=== PATIENT | male | born 1965 | race Caucasian/White ===

== ENCOUNTER 2016-07-10 10:47 | Observation (INO) | payer OTHER ==
[2016-07-10] MEDS ORDERED: ASPIRIN 81 MG (BABY) CHEWABLE TABLET PO ONE (10:53)
[2016-07-10] MEDS ORDERED: NITROGLYCERIN 0.4 MG SL TAB (BOTTLE OF 3) SL ONE (10:58)
[2016-07-10] MEDS ORDERED: MORPHINE SULFATE 4 MG/1 ML IVP ONE (10:58)
[2016-07-10] MEDS ORDERED: LORazepam 2 MG/1 ML VIAL IVP ONE (10:58)
[2016-07-10] MEDS ORDERED: ONDANSETRON 4 MG/2 ML VIAL IVP ONE (10:58)
--- NOTE | 2016-07-10 11:05 | PDOC ---
Chest Pain HPI - General Chief Complaint: Chest Pain Stated Complaint: CHEST PAIN Date Seen by Provider: 07/10/16 Time Seen by Provider: 11:00 Source: Patient Exam Limitations: POSITIVE: No limitations Treatment Prior to Arrival: REPORTS: None Nurse's Notes Reviewed & Considered: Yes - History of Present Illness Initial Comments: Patient reports into the emergency room with chest pain. Patient developed chest pain that he describes as a pressure, substernal, with no radiation. This pain began approximately 4 PM yesterday and has progressively gotten worse today. 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 He describes it as pressure and burning. He denies any headache, changes in his vision, shortness of breath, no cough, no abdominal pain, no nausea vomiting or diarrhea, no fever chills or sweats. Body Location Affected: REPORTS: Chest Timing: REPORTS: Constant Duration: <24 hours Severity: Moderate Context: REPORTS: Activity (Began during work but has progressed during rest overnight.) Quality: REPORTS: Burning, Pressure Modifying Factors: improves with: None Reported Similar Symptoms Previously: No Recently seen/treated/hospitalized: No Any Prior Injuries Related to Current Complaint?: No - Patient Home Medications Home Medications: Home Medications Esomeprazole Magnesium [Nexium] 40 mg PO DAILY 07/10/16 Ibuprofen [Advil] 400 mg PO TID PRN 07/10/16 - Patient Allergies Allergies/Adverse Reactions: Allergies Allergy/AdvReac Type Severity Reaction Status Date / Time No Known Allergies Allergy Verified 07/10/16 13:29 ROS - Limitations ROS Limitations: No Limitations Constitution: REPORTS: Denies Symptoms Cardiovascular: REPORTS: Chest Pain Respiratory: REPORTS: Denies Resp Symptoms Neurological: REPORTS: Denies Neuro Symptoms Gastrointestinal: REPORTS: Denies GI Symptoms Endocrine: REPORTS: Denies Symptoms Musculoskeletal: REPORTS: Denies MS Symptoms Genitourinary: REPORTS: Denies Symptoms Eyes: REPORTS: Denies Symptoms ENT: REPORTS: Denies Symptoms Skin: REPORTS: Denies Skin Symptoms Lympathic: REPORTS: Denies Lympathic Symptoms Immunologic: POSITIVE: Denies Symptoms Psychiatric: POSITIVE: Denies Psych Symptoms Chest Pain PE - General Appearance General Appearance: REPORTS: Alert, Cooperative, No Evidence of Trauma, Anxious , Mild Distress - HEENT HEENT: POSITIVE: Head Inspection Nml, Eyes Inspection Nml, Ears Inspection Nml, Nose Inspection Nml, PERRL, EOMI - Neck Neck: REPORTS: Normal Inspection - Respiratory Respiratory: REPORTS: No Respiratory Distress, Breath Sounds Normal, Chest Non- Tender - Cardiovascular Cardiovascular: REPORTS: Regular Rate and Rhythm, Heart Sounds Normal - Abdomen Abdomen: Soft: (All Quadrants), Normal Bowel Sounds: (All Quadrants), Denies Tenderness: (All Quadrants) - Skin Skin: REPORTS: Intact, Normal For Race, Warm, Dry, No Rash - Extremities Extremity: Non-Tender: (All Extremities), Normal ROM: (All Extremities), Normal Inspection: (All Extremities) - Neurological / Psychological Neurological: POSITIVE: Affect Apporpriate, Oriented X3, Motor Normal, Sensation Normal Chest Pain Progress - Results Reviewed by me Xrays/CTs/US Reviewed by me: Yes Discussed with Radiologist: No Lab Results Reviewed: Yes Lab Results:: Laboratory Results 07/10/16 Range/Units 11:00 WBC 8.13 (4.8-10.8) 10^3/uL RBC 5.20 (4.70-6.10) 10^6/uL Hgb 14.6 (14.0-18.0) g/dL Hct 42.5 (42.0-52.0) % MCV 81.7 (80-90) FL MCH 28.1 (27-31) PG MCHC 34.4 (33-37) g/dL RDW Std Deviation 38.9 L (39-50) fL RDW Coeff of Nicole 13.1 (11.5-14.5) % Plt Count 313 (140-350) 10*3/uL MPV 9.0 (7.4-12.2) FL Immature Gran % (Auto) 0.1 (0-5) % Neut % (Auto) 53.9 (50-80) % Lymph % (Auto) 35.1 (10-50) % [place] % (Auto) 8.1 (5-15) % Eos % (Auto) 2.1 (0-8) % Baso % (Auto) 0.7 (0-1) % Immature Gran # (Auto) 0.01 10*3/UL Neut # (Auto) 4.38 10*3/UL Lymph # (Auto) 2.85 10*3/uL [place] # (Auto) 0.66 (0.3-0.8) 10*3/UL Eos # (Auto) 0.17 10*3/UL Baso # (Auto) 0.06 10*3/UL WBC Morphology Comment Normal morphology (NORM) Plt Morphology Comment Normal morphology (NORM) RBC Morph Comment Normal morphology (NORM) D-Dimer 0.40 (0.00-0.59) mg/L Sodium 134 L (135-145) meq/L Potassium 4.5 (3.8-5.2) meq/L Chloride 101 (98-112) meq/L Carbon Dioxide 20 L (23-33) meq/L Anion Gap 13 (5-20) BUN 16 (7-22) mg/dL Creatinine 0.9 (0.70-1.50) mg/dL Estimated GFR > 60 (>60 ml/min/1.73m(2)) BUN/Creatinine Ratio 17.77 (6-20) Glucose 102 (78-110) mg/dL Calculated Osmolality 278.0 (267-292) mOsm/kg Calcium 9.3 (8.7-10.7) mg/dL Magnesium 1.8 (1.6-2.4) mg/dL Total Bilirubin 0.9 (0.3-1.2) mg/dL AST 36 (21-57) IU/L ALT 31 (21-72) IU/L Alkaline Phosphatase 55 (38-126) IU/L Troponin I < 0.012 (< 0.040) ng/mL C-Reactive Protein < 0.5 (0.0-0.9) mg/dL Total Protein 7.9 (6.1-8.0) g/dL Albumin 4.4 (3.5-4.8) g/dL Globulin 3.5 (2.50-4.10) g/dL Albumin/Globulin Ratio 1.20 L (1.3-2.0) mg/g TSH 1.12 (0.2700-4.2000) uIU/mL EKG Interpreted/Reviewed By Me:: Yes (NSR) EKG Interpretation:: POSITIVE: Normal Sinus Rhythm, Normal Rate, Normal QRS, Normal ST/T - Patient's Progress Pain Medication Addressed: POSITIVE: Yes Re-Examine Time: 13:31 Status: POSITIVE: Improved MDM / ED Course: Patient was evaluated, an IV started, blood drawn and sent to the lab for studies, EKG and chest x-rays obtained. During the attempt to start his IV in his left arm he experienced a syncopal episode with sweating, faintness, and shortness of breath. This rapidly improved. He received a GI cocktail which did not improve his pain. He then received sublingual nitroglycerin which again caused a precipitous drop in his blood pressure into the 90s systolic. The sublingual nitroglycerin did improve his chest pressure from a 5/10 down to a 2/10. Findings: EKG interpreted by me shows a sinus rhythm with normal QRS, normal ST- T segments. Chest x-ray shows no acute cardiopulmonary decompensation per my interpretation. CBC is unremarkable, comprehensive metabolic panel is unremarkable, magnesium is normal, troponin is normal, d-dimer is normal, TSH is normal. Assessment: Chest pain, relieved with sublingual nitroglycerin. Patient is being admitted for rule out myocardial infarction. Plan: Admission, serial cardiac enzymes. Quality Measure Initiative: CP/AMI: POSITIVE: EKG, ASA Quality Measure Initiative: CAP: POSITIVE: CXR or CT - Consult Consult (If Yes, Name of Consulting MD & Time Called): Yes (DR. Sultana [id number]) Consulting MD will see pt:: POSITIVE: [facility] [place] Admit Counseled: POSITIVE: Patient, RE: Lab Results, RE: Radiology Results, RE: DX Patient Care Time - Estimated PCT Patient Care Time (In Minutes): 45 Vital Signs - Recent Vital Signs Vital Signs: Vital Signs (Last 8 hours) Temp Pulse Resp BP Pulse Ox 07/10/16 12:56 67 142/98 98 07/10/16 12:36 76 16 135/93 94 07/10/16 12:01 88 07/10/16 11:19 68 16 112/80 98 07/10/16 11:09 73 90/73 89 07/10/16 11:00 66 59/46 90 07/10/16 10:48 98.1 F 88 16 163/114 94 - VS Reviewed Vital Signs Reviewed: Yes Discharge Clinical Impression: Chest pain Discharge Disposition: Admit to Inpatient Condition: Stable Patient Instructions Given at Discharge: Chest Pain (ED) Follow Up With: NONE,NONE [Primary Care Provider] - Date Decision to Admit to Inpatient: 07/10/16 Time Decision to Admit to Inpatient: 13:32
[2016-07-10 11:10] LABS: BASOPHILS # (AUTO) 0.06 10*3/UL; BASOPHILS % (AUTO) 0.7 % (0-1); EOSINOPHILS # (AUTO) 0.17 10*3/UL; EOSINOPHILS % (AUTO) 2.1 % (0-8); HEMATOCRIT 42.5 % (42.0-52.0); HEMOGLOBIN 14.6 g/dL (14.0-18.0); LYMPHOCYTES # (AUTO) 2.85 10*3/uL; MEAN CORPUSCULAR HEMOGLOBIN 28.1 PG (27-31); MEAN CORPUSCULAR HGB CONC 34.4 g/dL (33-37); MEAN CORPUSCULAR VOLUME 81.7 FL (80-90); MONOCYTES # (AUTO) 0.66 10*3/UL (0.3-0.8); MONOCYTES % (AUTO) 8.1 % (5-15); NEUTROPHILS # (AUTO) 4.38 10*3/UL; NEUTROPHILS % (AUTO) 53.9 % (50-80)
[2016-07-10] MEDS ORDERED: Sodium Chloride 0.9% 1,000 ML PRIMARY IV ONE (11:10)
[2016-07-10 11:11] LABS: PLATELET MORPHOLOGY COMMENT NORMAL MORPHOLOGY (NORM); RBC MORPHOLOGY COMMENT NORMAL MORPHOLOGY (NORM); WBC MORPHOLOGY COMMENT NORMAL MORPHOLOGY (NORM)
[2016-07-10 11:24] LABS: BLOOD UREA NITROGEN 16 mg/dL (7-22); BUN/CREATININE RATIO 17.77 (6-20); CALCIUM 9.3 mg/dL (8.7-10.7); EST GLOMERULAR FILTRATION > 60 (>60 ml/min/1.73m(2)); MAGNESIUM 1.8 mg/dL (1.6-2.4); SERUM ALBUMIN 4.4 g/dL (3.5-4.8)
[2016-07-10] MEDS ORDERED: Belladon/PHENobarbital Elixir 10 ML, Lidocaine Viscous Liquid 2% 15 ML, Mag Hyd/Al Hyd/... PO ONE ×3 (11:38)
[2016-07-10] MEDS ORDERED: NORMAL SALINE 10 ML SYRINGE FLUSH IVP PRN (14:07)
[2016-07-10] MEDS ORDERED: LIDOCAINE W/ SODIUM BICARB 0.5 ML SYR SUBD PRN (14:07)
[2016-07-10] MEDS ORDERED: ONDANSETRON 4 MG/2 ML VIAL IVP PRN (14:07)
[2016-07-10] MEDS ORDERED: NITROGLYCERIN 0.4 MG SL TAB (BOTTLE OF 3) SL PRN (14:07)
--- NOTE | 2016-07-10 15:48 | PDOC ---
History and Physical - History of Present Illness Date and Time of Service: 07/10/2016, 1542 Chief Complaint: Chest pain History of Present Illness: This very pleasant 50-year-old male with reflux disease relapse on Nexium therapy for that for several years now who presents with complaints of chest pain that really started yesterday. He states that after he then her, he had some immediate chest pain that felt pressure-like and radiated into his neck. The pains that seemed to subside, but came back this morning was significantly worse. He states he might of had some shortness breath that wasn't too sure, no nausea, vomiting, or diaphoresis. He does not take anything else when necessary for chest pain such as Tums or H2 blockers, and he is scheduled for repeat EGD in August of this year. He states the monitor frequently with EGD for this. In the emergency room, the patient was given nitroglycerin and that helped his pain, but his blood pressures did drop with that. He states to me that every now and then he'll have that type of chest pressure although not radiation into the neck and not quite as severe, and it just tends to go away on its own. He does chew tobacco, does not have hypertension, does not have diabetes, and does not still status. He does have a family history of heart disease in his father had a bypass in his 60s. He does have some knee arthritis , but states that he feels like he can do a treadmill. Past Medical History Medical History: 1. GERD. 2. Chews tobacco Surgical History: None Pertinent Family History: Father had bypass and heart disease Past Social History: , has 2 children described as healthy. Lives in [place], [place]. 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 Does not drink alcohol. Does not do drugs. Tobacco Use: Never Smoker Do you dip or chew tobacco: Yes Substance Use Type: None Alcohol Use: None Medication / Allergies Home Medications: Home Medications Medication Instructions Recorded Confirmed Type Esomeprazole Magnesium [Nexium] 40 mg PO DAILY 07/10/16 07/10/16 History Ibuprofen [Advil] 400 mg PO TID PRN 07/10/16 07/10/16 History Allergies/Adverse Reactions: Allergies Allergy/AdvReac Type Severity Reaction Status Date / Time No Known Allergies Allergy Verified 07/10/16 13:29 Review of Systems - Review of Systems All Systems: Reviewed & No Additional Complaints Except as Stated (I did a 12 point review systems and it was negative other than that discussed in history present illness.) Exam - Vitals Vital Signs: Vital Signs Temperature 97 F Temperature Source Temporal Artery Scan Pulse Rate [Telemetry] 67 Pulse Rate 82 Respiratory Rate 18 Blood Pressure [Left Arm] 136/85 Blood Pressure 117/88 Pulse Ox 92 Oxygen Delivery Method Room Air Height 6 ft Weight 222 lb - General General Appearance: POSITIVE: No Acute Distress, Cooperative - Head Head Exam: POSITIVE: Normal Inspection, Normocephalic, Atraumatic - Eye Eye Exam: POSITIVE: Normal Appearance, No Scleral Icterus - ENT ENT Exam: POSITIVE: Mucous Membranes Moist - Neck Neck Exam: POSITIVE: Normal Inspection, No Tenderness, No Thyromegaly - Respiratory Respiratory Exam: POSITIVE: Clear to Auscultation - Bilaterally, Breathing Non Labored, Normal to Percussion and Palpation - Cardiovascular Cardiovascular Exam: POSITIVE: RRR, No Murmur, No Clicks, No Gallops, No Rubs, PMI Non-Displaced, No JVD Additional Cardiovascular Details: Chest pain is not reproduced with palpation. - GI/Abdominal GI/Abdominal Exam: POSITIVE: Normal Bowel Sounds, Non Tender, Non Distended, Soft - Rectal Rectal Exam: POSITIVE: Deferred - External Exam: POSITIVE: Deferred Exam: POSITIVE: Deferred - Extremities Extremities Exam: POSITIVE: No Clubbing Present, No Edema Present, No Cyanosis Present - Back Back Exam: POSITIVE: Normal Inspection, No CVA Tenderness - Neurological Neurological Exam: POSITIVE: Alert, Oriented x 3, No Facial Droop, Speech Intact / Clear, Moves All Extremities Equally - Psychiatric Psychiatric Exam: POSITIVE: Normal Affect, Normal Mood Results - Labs CBC and BMP: 07/10/16 11:00 07/10/16 11:00 Labs - Last 24 Hours: Laboratory Results 07/10/16 Range/Units 11:00 WBC 8.13 (4.8-10.8) 10^3/uL RBC 5.20 (4.70-6.10) 10^6/uL Hgb 14.6 (14.0-18.0) g/dL Hct 42.5 (42.0-52.0) % MCV 81.7 (80-90) FL MCH 28.1 (27-31) PG MCHC 34.4 (33-37) g/dL RDW Std Deviation 38.9 L (39-50) fL RDW Coeff of Nicole 13.1 (11.5-14.5) % Plt Count 313 (140-350) 10*3/uL MPV 9.0 (7.4-12.2) FL Immature Gran % (Auto) 0.1 (0-5) % Neut % (Auto) 53.9 (50-80) % Lymph % (Auto) 35.1 (10-50) % [place] % (Auto) 8.1 (5-15) % Eos % (Auto) 2.1 (0-8) % Baso % (Auto) 0.7 (0-1) % Immature Gran # (Auto) 0.01 10*3/UL Neut # (Auto) 4.38 10*3/UL Lymph # (Auto) 2.85 10*3/uL [place] # (Auto) 0.66 (0.3-0.8) 10*3/UL Eos # (Auto) 0.17 10*3/UL Baso # (Auto) 0.06 10*3/UL WBC Morphology Comment Normal morphology (NORM) Plt Morphology Comment Normal morphology (NORM) RBC Morph Comment Normal morphology (NORM) D-Dimer 0.40 (0.00-0.59) mg/L Sodium 134 L (135-145) meq/L Potassium 4.5 (3.8-5.2) meq/L Chloride 101 (98-112) meq/L Carbon Dioxide 20 L (23-33) meq/L Anion Gap 13 (5-20) BUN 16 (7-22) mg/dL Creatinine 0.9 (0.70-1.50) mg/dL Estimated GFR > 60 (>60 ml/min/1.73m(2)) BUN/Creatinine Ratio 17.77 (6-20) Glucose 102 (78-110) mg/dL Calculated Osmolality 278.0 (267-292) mOsm/kg Calcium 9.3 (8.7-10.7) mg/dL Magnesium 1.8 (1.6-2.4) mg/dL Total Bilirubin 0.9 (0.3-1.2) mg/dL AST 36 (21-57) IU/L ALT 31 (21-72) IU/L Alkaline Phosphatase 55 (38-126) IU/L Troponin I < 0.012 (< 0.040) ng/mL C-Reactive Protein < 0.5 (0.0-0.9) mg/dL Total Protein 7.9 (6.1-8.0) g/dL Albumin 4.4 (3.5-4.8) g/dL Globulin 3.5 (2.50-4.10) g/dL Albumin/Globulin Ratio 1.20 L (1.3-2.0) mg/g TSH 1.12 (0.2700-4.2000) uIU/mL - EKG Data EKG Interpretation: Other (I am ordering an EKG.) - Imaging Status: Image Reviewed by Me (Chest x-ray appears negative.) Assessment and Plan - Patient Problems (1) Chest pain Current Visit: Yes Status: Acute Qualifiers: Chest pain type: precordial pain Qualified Description: Precordial pain Qualifier Code(s): (R07.2) Precordial pain (2) GERD (gastroesophageal reflux disease) Current Visit: Yes Status: Acute Qualifiers: Esophagitis presence: esophagitis presence not specified Qualified Description: Gastroesophageal reflux disease, esophagitis presence not specified Qualifier Code(s): (K21.9) Gastro-esophageal reflux disease without esophagitis (3) Chewing tobacco nicotine dependence Current Visit: Yes Status: Acute Qualifiers: Substance use status: uncomplicated Qualified Description: Chewing tobacco nicotine dependence without complication Qualifier Code(s): ( F17.220) Nicotine dependence, chewing tobacco, uncomplicated - Assessment / Plan Additional Assessment/Plan Details: Plan: 1. Do serial enzymes and EKG if necessary 2. Aspirin, but does not appear to be unstable angina, so hold off on Lovenox. Would like to hold beta martha to get stress test on 3. We'll have the patient do a stress test [nuclear medicine treadmill test] 4. Proton pump inhibitorhome Nexium at possible 5. Nitroglycerin when necessary for chest pain 6. Morphine if necessary via IV 7. Oxygen if necessary 8. If testing indicates further need for evaluation, discussion with cardiology. If testing is negative for myocardial infarction and no further indication for coronary artery disease, consider outpatient workup for GI source , pulmonary source, or other 9. Noting that the patient has a scheduled EGD in August, but it may be worthwhile to do pH monitoring and determine whether the patient could be a candidate for Kelly fundoplication for his bad acid reflux. In the meantime, consider Tums or H2 blockers to help. Plan above discussed with patient and his and they agreed.
--- NOTE | 2016-07-10 15:54 | EKG ---
[address] [address] Measurements Intervals [place] Rate: 84 P: 37 DC: 179 QRS: -5 QRSD: 105 T: 12 QT: 365 QTc: 407 Interpretive Statements SINUS RHYTHM No prior study available for comparison and no acute ST-T changes to suggest acute injury. Electronically Signed On 07-11-16 08:09:15 MDT by Sin Tirado MD [email or web address]
[2016-07-11 04:43] LABS: AMPHETAMINE SCREEN NEGATIVE (NEG); CANNABINOID SCREEN,URINE NEGATIVE (NEG); COCAINE SCREEN NEGATIVE (NEG); METHADONE URINE SCREEN NEGATIVE (NEG); METHAMPHETAMINES SCREEN,URINE NEGATIVE (NEG); OPIATE SCREEN,URINE NEGATIVE (NEG); URINE SAMPLE TYPE CLEAN CATCH URINE; URINE SPECIFIC GRAVITY - MAN 1.015
[2016-07-11 06:44] LABS: CHOL/HDL RATIO 4.19 RATIO (0-4.0); LDL CHOLESTEROL,CALCULATED 101.4 mg/dL
[2016-07-11] MEDS: Esomeprazole DR 20mg Capsule PO SCH (06:49)
--- NOTE | 2016-07-11 09:22 | STRESSTEST ---
[facility] [place] Interpretive Statements This is a 50 YO male who presented with chest pain. Had + family history, no DMII, no HTN, no cholesterol problems, + chewing tobacco. Ruled out for myocardial infarction. Resting EKG NSR. Exercised to 7:27 on Trav protocol, sestimebi stress test. Did have hypertensive response and SVT which all recovered in rest. Plan: stress images today, resting images tomorrow. [email or web address]
--- NOTE | 2016-07-11 09:35 | DI ---
AP CHEST X-RAY, 07/10/2016 10:58 AM : Clinical History: Chest pain Previous Exam: None at this facility. There is no acute soft tissue or bony abnormality. Heart size is normal. Lungs are clear. Mediastinal structures are normal. There are no pulmonary nodules. Reading: Normal chest x-ray.
[2016-07-11] MEDS: ASPIRIN EC 81 MG TABLET PO SCH (10:00)
[2016-07-11] MEDS ORDERED: CALCIUM CARBONATE 500 MG (TUMS) CHEWABLE TABLET PO PRN (11:29)
--- NOTE | 2016-07-11 11:29 | PDOC(PROG) ---
Date and Time of Service: 07/11/2016, 1129 Interval History: Chest pain is essentially unchanged, no shortness of breath and no nausea or vomiting. We did do a stress test today, and the results are pending as it is a 2 day sestamibi treadmill stress test. The stress portion done today, with the rest images to be done tomorrow. Objective : Data - Labs CBC and BMP: 07/10/16 11:00 07/10/16 11:00 Labs - Last 24 Hours: Laboratory Results 07/10/16 07/10/16 07/11/16 Range/Units 15:50 22:19 04:00 Troponin I < 0.012 < 0.012 (< 0.040) ng/mL Triglycerides (44-200) mg/dL Cholesterol (120-200) mg/dL LDL Cholesterol, Calc mg/dL VLDL Cholesterol (0-40) mg/dL HDL Cholesterol (40-150) mg/dL Cholesterol/HDL Ratio (0-4.0) RATIO Ur Collection Type Clean catch urine U Specif Grav (Refrac) 1.015 Urine Opiates Screen Negative (NEG) Ur Buprenorphine Negative (NEG) Ur Oxycodone Screen Negative (NEG) Urine Methadone Screen Negative (NEG) Ur Propoxyphene Screen Negative (NEG) Barbiturate Screen Positive H (NEG) U Tricyclic Antidepress Negative (NEG) Phencyclidine Screen Negative (NEG) Amphetamines Screen Negative (NEG) U Methamphetamines Scrn Negative (NEG) Benzodiazepines Screen Negative (NEG) Cocaine Screen Negative (NEG) U Marijuana (THC) Screen Negative (NEG) 07/11/16 Range/Units 06:08 Troponin I < 0.012 (< 0.040) ng/mL Triglycerides 163 (44-200) mg/dL Cholesterol 176 (120-200) mg/dL LDL Cholesterol, Calc 101.400 mg/dL VLDL Cholesterol 32 (0-40) mg/dL HDL Cholesterol 42 (40-150) mg/dL Cholesterol/HDL Ratio 4.19 H (0-4.0) RATIO Ur Collection Type U Specif Grav (Refrac) Urine Opiates Screen (NEG) Ur Buprenorphine (NEG) Ur Oxycodone Screen (NEG) Urine Methadone Screen (NEG) Ur Propoxyphene Screen (NEG) Barbiturate Screen (NEG) U Tricyclic Antidepress (NEG) Phencyclidine Screen (NEG) Amphetamines Screen (NEG) U Methamphetamines Scrn (NEG) Benzodiazepines Screen (NEG) Cocaine Screen (NEG) U Marijuana (THC) Screen (NEG) Objective : Exam - General General Appearance: No Acute Distress, Cooperative Additional General Exam Details: Vital Signs - Last Taken Temperature 97.7 F 07/11/16 10:50 Pulse Rate 84 07/11/16 10:50 Respiratory Rate 18 07/11/16 10:50 Blood Pressure 143/87 07/11/16 10:50 Pulse Ox 92 07/11/16 10:50 - Eye Eye Exam: No Scleral Icterus - Respiratory Respiratory Exam: Clear to Auscultation - Bilaterally, Breathing Non Labored - Cardiovascular Cardiovascular Exam: RRR, No Murmur, No Clicks, No Gallops, No Rubs, No JVD - GI/Abdominal GI/Abdominal Exam: Normal Bowel Sounds, Non Tender, Non Distended, Soft - Extremities Extremities Exam: No Clubbing Present, No Edema Present, No Cyanosis Present - Neurological Neurological Exam: Alert, Oriented x 3, Normal Gait, No Facial Droop, Speech Intact / Clear, Moves All Extremities Equally Assessment and Plan - Patient Problems (1) Chest pain Current Visit: Yes Status: Acute Qualifiers: Chest pain type: precordial pain Qualified Description: Precordial pain Qualifier Code(s): (R07.2) Precordial pain (2) GERD (gastroesophageal reflux disease) Current Visit: Yes Status: Acute Qualifiers: Esophagitis presence: esophagitis presence not specified Qualified Description: Gastroesophageal reflux disease, esophagitis presence not specified Qualifier Code(s): (K21.9) Gastro-esophageal reflux disease without esophagitis (3) Chewing tobacco nicotine dependence Current Visit: Yes Status: Acute Qualifiers: Substance use status: uncomplicated Qualified Description: Chewing tobacco nicotine dependence without complication Qualifier Code(s): ( F17.220) Nicotine dependence, chewing tobacco, uncomplicated - Assessment / Plan Additional Assessment/Plan Details: Still suspicious that this chest pain is likely related to GERD and esophageal spasm, but we will await complete results of stress test before making that determination. Read on the treadmill portion of the stress test will be done later today, again with images to be done today for stress images and rest images tomorrow. Cholesterol panel looks well controlled and I do not think the patient needs a cholesterol medication at this point. Continue telemetry monitoring. Add when necessary medications for heartburn.
--- NOTE | 2016-07-11 18:33 | PROCEDURE1 ---
Procedure - - Date and Time of Service: 06/13/2016, 1823 Procedure Note: Procedure Performed: Exercise Stress Test, sestimibi enhanced nuclear medicine treadmill stress test Subjective: patient age, 50 Chest pain Trav protocol, nuclear medicine treadmill stress test Baseline Information: HR 64, BP 136/96, EKG findings at rest, normal sinus rhythm Peak Exercise Data: maximum HR is 169, 100% of target maximum heart rate maximum BP, 192/82 METs, 8.6 time in Stage made it into stage III, 30 seconds reason for stopping, test complete There were some abnormal signal, and a wandering baseline through big portion of this test, but at the end of exercise with immediate cessation of exercise, the patient was in sinus tachycardia versus SVT. No ST depression was noted. No ST elevation noted. When accounting for abnormal signal and noise, there were no abnormalities noted in exercise or rest HR at first minute of recovery, 136 Assessment: For the treadmill portion of the stress test, this appears to be a negative maximal stress test. There was a lot of noise which makes the test difficult to interpret in terms of any ST depressions or segment changes. Hypertensive response to exercise symptoms included fatigue at the end of the test, mild shortness breath, O2 sat found to be 88% with exercise which was above 91% on room air at rest arrhythmias, none functional aerobic capacity in METs, 8.6 Exercise Prescription and Plan: Given the treadmill portion of the stress test, the patient should be able to do aerobic exercise 30 minutes per day 5-7 times per week. Symptom dependent, Quit chewing tobacco, management of blood pressure if it maintains elevation and treat. I will have the patient monitor his blood pressures and lemon picker a blood pressure machine to monitor on a frequent basis to determine if treatment is necessary. Weight loss and tobacco cessation. Overall, plan will be to review stress and rest images tomorrow and have radiology interpret images.
[2016-07-12] MEDS: Esomeprazole DR 20mg Capsule PO SCH (07:19)
[2016-07-12] MEDS: ASPIRIN EC 81 MG TABLET PO SCH (10:46)
--- NOTE | 2016-07-12 12:09 | DI ---
2 DAY LEXISCAN STRESS & REST MYOCARDIAL PERFUSION SCANS, 07/11/2016 7:00 AM : Clinical History: Chest pain. Previous Exam: None at this facility. The patient was stressed by Dr. Sergio Loco The standard Lexiscan protocol was used. Please see the Doctor's report. At the designated time, 36.2 mCi of 99Tc-sestimibi was injected IV. Stress gated tomograms were acquired within one hour of the i njection. For the resting scans, 34.9 mCi was injected IV and resting gated tomograms were acquired in similar fashion. Stress scans were performed on July 11, 2016; the resting scans were performed on July 12, 2016. Quantitative and qualitative analyses were performed. Quantitative analysis was performed with the [place] [facility] - [facility] [id number] protocols. Very low dose limited CT scans of the chest are o btained through the level of the heart for attenuation correction of the gated stress and rest cardia c SPECT data. Non-attenuated and attenuated scans were processed for review, and the attenuated scans were used for final interpretation of this study. Review of the raw data images and quality assurance technician files indicate that these series of examinations ar e of good quality. Stress and rest left ventricular chamber sizes are normal. Stress and rest LVEF ar e 62 % and 67 %, respectively. There is no evidence of ischemia. There is normal wall motion. Transient ischemic dilatation ratio is 1.02, with a normal range up to 1.22 for patients str essed with the Trav protocol and up to 1.33 for patients stressed with the Lexiscan protocol. The very low dose CT scans through the level of the heart show no coronary artery calcifications. The re is no adenopathy or evidence of lung nodules. Readin. No evidence of ischemia. 2. Normal wall motion and normal ejection fraction.
[2016-07-12 12:31] VITALS: RESP 18; TEMP 97.2
--- NOTE | 2016-07-12 12:55 | DCSUMMARY ---
Hospitalization Summary Admit Date: 07/10/16 Discharge Date: 07/12/16 Primary Diagnosis:: chest pain, secondary to GERD Hospital Course: This very pleasant 50-year-old male that came in with substernal chest pain with a somewhat atypical story. He was given nitroglycerin which relieved his pain and his blood pressure dropped. His hip for further evaluation and management. He ruled out for myocardial infarction, his cholesterol panel is fine, and his pain significantly improved during the hospital stay. A stress test was done ([employer] Trav protocol stress test). The patient has no evidence of coronary artery disease based on the exercise component or scanning component of the stress test. His functional capacity is good enough to recommend aerobic exercise. One thing we did notices her blood pressures are occasionally elevated and at other times are normal. I think the patient has elevated blood pressure without the diagnosis of hypertension and it would be best to monitor him to determine whether he would benefit from antihypertensive medications. In terms of his reflux disease, I've suggested Tums and Zantac as when necessary medications in addition to Nexium, dietary changes and decrease or quit tobacco use if possible to help. Kelly fundoplication also may be indicated as patient is having breakthrough reflux. He has an EGD and colonoscopy scheduled with his providers back in [place] in August and I think that would be fine to wait until August to proceed with the studies at this time. There were no "red flag" symptoms outside of reflux that does not always respond to Nexium. He had normal blood counts. No evidence of anemia. No complaints of blood in the stool. No weight loss. Today, no completes of chest pain, shortness breath, nausea or vomiting. Patient is ready to go home. Assessment and Plan: 1. As per discharge assessments noted 2. Disposition: Patient is discharged home. 3. Condition on discharge, stable and improved. 4. Diet: regular diet 5. Activities: resume normal activities, okay to return to work 6. Follow-Up: 1. Primary care provider upon return to [place] 2. 7. Medications at the Time of Discharge: Home Medications Medication Instructions Recorded Confirmed Type Esomeprazole Magnesium [Nexium] 40 mg PO DAILY 07/10/16 07/10/16 History Ibuprofen [Advil] 400 mg PO TID PRN 07/10/16 07/10/16 History 8. Time, care, counseling and coordination of care for this discharge is less than 30 minutes. Exam - Vitals Vital Signs: Vital Signs Vital Signs - Last Taken Temperature 97.2 F 07/12/16 12:30 Pulse Rate 78 07/12/16 12:30 Respiratory Rate 18 07/12/16 12:30 Blood Pressure 154/98 07/12/16 12:30 Pulse Ox 93 07/12/16 12:30 - General General Appearance: POSITIVE: No Acute Distress, Cooperative - Head Head Exam: POSITIVE: Atraumatic - Eye Eye Exam: POSITIVE: No Scleral Icterus - Respiratory Respiratory Exam: POSITIVE: Clear to Auscultation - Bilaterally, Breathing Non Labored - Cardiovascular Cardiovascular Exam: POSITIVE: RRR, No Murmur, No Clicks, No Gallops, No Rubs, No JVD - GI/Abdominal GI/Abdominal Exam: POSITIVE: Normal Bowel Sounds, Non Tender, Non Distended, Soft - Extremities Extremities Exam: POSITIVE: No Clubbing Present, No Edema Present, No Cyanosis Present - Neurological Neurological Exam: POSITIVE: Alert, Oriented x 3, No Facial Droop, Speech Intact / Clear, Moves All Extremities Equally - Psychiatric Psychiatric Exam: POSITIVE: Normal Affect, Normal Mood Data Perinent Studies: Laboratory Results 07/10/16 07/10/16 07/10/16 Range/Units 11:00 15:50 22:19 WBC 8.13 (4.8-10.8) 10^3/uL RBC 5.20 (4.70-6.10) 10^6/uL Hgb 14.6 (14.0-18.0) g/dL Hct 42.5 (42.0-52.0) % MCV 81.7 (80-90) FL MCH 28.1 (27-31) PG MCHC 34.4 (33-37) g/dL RDW Std Deviation 38.9 L (39-50) fL RDW Coeff of Nicole 13.1 (11.5-14.5) % Plt Count 313 (140-350) 10*3/uL MPV 9.0 (7.4-12.2) FL Immature Gran % (Auto) 0.1 (0-5) % Neut % (Auto) 53.9 (50-80) % Lymph % (Auto) 35.1 (10-50) % [place] % (Auto) 8.1 (5-15) % Eos % (Auto) 2.1 (0-8) % Baso % (Auto) 0.7 (0-1) % Immature Gran # (Auto) 0.01 10*3/UL Neut # (Auto) 4.38 10*3/UL Lymph # (Auto) 2.85 10*3/uL [place] # (Auto) 0.66 (0.3-0.8) 10*3/UL Eos # (Auto) 0.17 10*3/UL Baso # (Auto) 0.06 10*3/UL WBC Morphology Comment Normal morphology (NORM) Plt Morphology Comment Normal morphology (NORM) RBC Morph Comment Normal morphology (NORM) D-Dimer 0.40 (0.00-0.59) mg/L Sodium 134 L (135-145) meq/L Potassium 4.5 (3.8-5.2) meq/L Chloride 101 (98-112) meq/L Carbon Dioxide 20 L (23-33) meq/L Anion Gap 13 (5-20) BUN 16 (7-22) mg/dL Creatinine 0.9 (0.70-1.50) mg/dL Estimated GFR > 60 (>60 ml/min/1.73m(2)) BUN/Creatinine Ratio 17.77 (6-20) Glucose 102 (78-110) mg/dL Calculated Osmolality 278.0 (267-292) mOsm/kg Calcium 9.3 (8.7-10.7) mg/dL Magnesium 1.8 (1.6-2.4) mg/dL Total Bilirubin 0.9 (0.3-1.2) mg/dL AST 36 (21-57) IU/L ALT 31 (21-72) IU/L Alkaline Phosphatase 55 (38-126) IU/L Troponin I < 0.012 < 0.012 < 0.012 (< 0.040) ng/mL C-Reactive Protein < 0.5 (0.0-0.9) mg/dL Total Protein 7.9 (6.1-8.0) g/dL Albumin 4.4 (3.5-4.8) g/dL Globulin 3.5 (2.50-4.10) g/dL Albumin/Globulin Ratio 1.20 L (1.3-2.0) mg/g Triglycerides (44-200) mg/dL Cholesterol (120-200) mg/dL LDL Cholesterol, Calc mg/dL VLDL Cholesterol (0-40) mg/dL HDL Cholesterol (40-150) mg/dL Cholesterol/HDL Ratio (0-4.0) RATIO TSH 1.12 (0.2700-4.2000) uIU/mL Ur Collection Type U Specif Grav (Refrac) Urine Opiates Screen (NEG) Ur Buprenorphine (NEG) Ur Oxycodone Screen (NEG) Urine Methadone Screen (NEG) Ur Propoxyphene Screen (NEG) Barbiturate Screen (NEG) U Tricyclic Antidepress (NEG) Phencyclidine Screen (NEG) Amphetamines Screen (NEG) U Methamphetamines Scrn (NEG) Benzodiazepines Screen (NEG) Cocaine Screen (NEG) U Marijuana (THC) Screen (NEG) 07/11/16 07/11/16 Range/Units 04:00 06:08 WBC (4.8-10.8) 10^3/uL RBC (4.70-6.10) 10^6/uL Hgb (14.0-18.0) g/dL Hct (42.0-52.0) % MCV (80-90) FL MCH (27-31) PG MCHC (33-37) g/dL RDW Std Deviation (39-50) fL RDW Coeff of Nicole (11.5-14.5) % Plt Count (140-350) 10*3/uL MPV (7.4-12.2) FL Immature Gran % (Auto) (0-5) % Neut % (Auto) (50-80) % Lymph % (Auto) (10-50) % [place] % (Auto) (5-15) % Eos % (Auto) (0-8) % Baso % (Auto) (0-1) % Immature Gran # (Auto) 10*3/UL Neut # (Auto) 10*3/UL Lymph # (Auto) 10*3/uL [place] # (Auto) (0.3-0.8) 10*3/UL Eos # (Auto) 10*3/UL Baso # (Auto) 10*3/UL WBC Morphology Comment (NORM) Plt Morphology Comment (NORM) RBC Morph Comment (NORM) D-Dimer (0.00-0.59) mg/L Sodium (135-145) meq/L Potassium (3.8-5.2) meq/L Chloride (98-112) meq/L Carbon Dioxide (23-33) meq/L Anion Gap (5-20) BUN (7-22) mg/dL Creatinine (0.70-1.50) mg/dL Estimated GFR (>60 ml/min/1.73m(2)) BUN/Creatinine Ratio (6-20) Glucose (78-110) mg/dL Calculated Osmolality (267-292) mOsm/kg Calcium (8.7-10.7) mg/dL Magnesium (1.6-2.4) mg/dL Total Bilirubin (0.3-1.2) mg/dL AST (21-57) IU/L ALT (21-72) IU/L Alkaline Phosphatase (38-126) IU/L Troponin I < 0.012 (< 0.040) ng/mL C-Reactive Protein (0.0-0.9) mg/dL Total Protein (6.1-8.0) g/dL Albumin (3.5-4.8) g/dL Globulin (2.50-4.10) g/dL Albumin/Globulin Ratio (1.3-2.0) mg/g Triglycerides 163 (44-200) mg/dL Cholesterol 176 (120-200) mg/dL LDL Cholesterol, Calc 101.400 mg/dL VLDL Cholesterol 32 (0-40) mg/dL HDL Cholesterol 42 (40-150) mg/dL Cholesterol/HDL Ratio 4.19 H (0-4.0) RATIO TSH (0.2700-4.2000) uIU/mL Ur Collection Type Clean catch urine U Specif Grav (Refrac) 1.015 Urine Opiates Screen Negative (NEG) Ur Buprenorphine Negative (NEG) Ur Oxycodone Screen Negative (NEG) Urine Methadone Screen Negative (NEG) Ur Propoxyphene Screen Negative (NEG) Barbiturate Screen Positive H (NEG) U Tricyclic Antidepress Negative (NEG) Phencyclidine Screen Negative (NEG) Amphetamines Screen Negative (NEG) U Methamphetamines Scrn Negative (NEG) Benzodiazepines Screen Negative (NEG) Cocaine Screen Negative (NEG) U Marijuana (THC) Screen Negative (NEG) I think the positive barbiturate screen is a false positive. Patient Problems - Patient Problem List (1) GERD (gastroesophageal reflux disease) Current Visit: Yes Status: Acute Comment: Complicated by esophageal spasm Qualifiers: Esophagitis presence: esophagitis presence not specified Qualified Description: Gastroesophageal reflux disease, esophagitis presence not specified Qualifier Code(s): (K21.9) Gastro-esophageal reflux disease without esophagitis (2) Chest pain Current Visit: Yes Status: Resolved Qualifiers: Chest pain type: precordial pain Qualified Description: Precordial pain Qualifier Code(s): (R07.2) Precordial pain (3) Chewing tobacco nicotine dependence Current Visit: Yes Status: Acute Qualifiers: Substance use status: uncomplicated Qualified Description: Chewing tobacco nicotine dependence without complication Qualifier Code(s): ( F17.220) Nicotine dependence, chewing tobacco, uncomplicated
== END 2016-07-12 13:56 | disposition home or self-care (01) ==
LOC: ER 10:47 → MED/SURG 13:28
PROVIDERS: ADMIT Family Medicine; ATTEND Family Medicine
DX: R07.9 Chest pain, unspecified (principal); K21.9 Gastro-esophageal reflux disease without esophagitis; F17.200 Nicotine dependence, unspecified, uncomplicated
CPT/HCPCS: 36415 ×2; 71010; 78452; 80053; 80061; 80305; 83735; 84443; 84484 ×2; 85025; 85379; 86140; 93005; 93010; 93016; 93017; 93018; 94761 ×3; 96360; 96361; 96365 ×3; 96366; 96367; 99285 ×2; A9500; J7030